=== PATIENT | female | born 1955 | race Caucasian/White ===

== ENCOUNTER 2016-10-12 13:01 | Emergency (ER) | payer OTHER ==
--- NOTE | 2016-10-12 13:22 | EDPHY ---
H & P Stated Complaint: pt dx bronchitis/is on tamiflu saw pcp last week increasing cough/sob Time Seen by Provider: 10/12/16 13:21 HPI/ROS: CHIEF COMPLAINT: Asthmatic bronchitis, worsening dyspnea HISTORY OF PRESENT ILLNESS: The patient has a history of asthmatic bronchitis and presents to the ED today with a history of worsening dyspnea. The patient reportedly developed an exacerbation of her symptoms after running out of her inhaled steroid. She restarted the steroid several days ago. The patient's has been sick with influenza and she was recently started on Tamiflu for prophylaxis. The patient has had no fever or flu-like illness personally. The patient has had a fairly severe cough over the past several days. The patient complains of generalized moderate dyspnea. She denies pleuritic chest pain. She denies asymmetric calf pain or swelling. REVIEW OF SYSTEMS: A comprehensive 10 point review of systems is otherwise negative aside from elements mentioned in the history of present illness. Source: Patient - Personal History Current Tetanus/Diphtheria Vaccine: Yes Tetanus Vaccine Date: <10yrs - Medical/Surgical History Hx Asthma: No Hx Chronic Respiratory Disease: No Hx Diabetes: No Hx Cardiac Disease: Yes Hx Renal Disease: No Hx Cirrhosis: No Hx Alcoholism: No Hx HIV/AIDS: No Hx Splenectomy or Spleen Trauma: No Other PMH: hip (bilat), appy, choly, hand surg, hysterectomy, HTN - Social History Smoking Status: Never smoked - Physical Exam Exam: General Appearance: Alert, no distress Eyes: Pupils equal and round no pallor or injection ENT, Mouth: Mucous membranes moist Respiratory: Decreased breath sounds bilaterally, scant expiratory wheezing Cardiovascular: Regular rate and rhythm Gastrointestinal: Abdomen is soft and nontender, no masses, bowel sounds normal Neurological: A&O, normal motor function, normal sensory exam, normal cranial nerves Skin: Warm and dry, no rashes Musculoskeletal: Neck is supple nontender Extremities: No asymmetric calf pain or swelling Constitutional: Initial Vital Signs Temperature (C) 36.7 C 10/12/16 13:09 Heart Rate 93 10/12/16 13:09 Respiratory Rate 18 10/12/16 13:09 Blood Pressure 121/87 H 10/12/16 13:09 O2 Sat (%) 97 10/12/16 13:09 Allergies/Adverse Reactions: prochlorperazine edisylate [From Compazine] Allergy (Unknown, Verified 10/12/16 13:05) prochlorperazine maleate [From Compazine] Allergy (Unknown, Verified 10/12/16 13 :05) tetracycline [Tetracycline] Allergy (Unknown, Verified 10/12/16 13:05) venom-honey bee [bee venom (honey bee)] Allergy (Unknown, Verified 10/12/16 13: 05) Home Medications: Medication Instructions Recorded Aspirin [Aspirin 81mg] 81 mg PO DAILY 05/06/11 Hydrochlorothiazide [HCTZ (*)] 50 mg PO DAILY 05/06/11 Ibandronate Sodium [Boniva] 150 mg PO .MONTHLY 05/06/11 Omeprazole/Sodium Bicarbonate 40 each PO DAILY 05/06/11 [Zegerid Otc 20-1,100 Mg Cap] POTASSIUM CHLORIDE [K-Kari] 20 meq PO DAILY 05/06/11 Rosuvastatin Calcium [Crestor] 20 mg PO HS 05/06/11 Temazepam 30 mg PO HS 05/06/11 Amitriptyline HCl [Elavil 10 mg 10 mg PO HS 06/21/13 (RX)] Cholecalciferol Vit D3 [Vitamin D3 1,000 units PO DAILY 06/21/13 1000 units (OTC)] DULoxetine [Cymbalta 30 MG (RX)] 30 mg PO DAILY 06/21/13 Isosorbide Mononitrate [Imdur 30 30 mg PO DAILY 06/21/13 mg (RX)] Tramadol HCl [Tramadol HCl ER] 100 mg PO TID 06/21/13 Nitroglycerin [Nitrostat 0.4 mg 0.4 mg SL PRN PRN 06/28/13 (RX)] Hydrocodone/APAP 5/325 [[place] 1 - 2 tab PO Q4 PRN 07/31/13 5/325 (RX)] Solifenacin Succinate [Vesicare 5 5 mg PO HS 07/31/13 MG (RX)] Dicyclomine [Bentyl] 20 mg PO QID PRN #20 tab 01/26/15 Dulera 100 Mcg/5 Mcg Inhaler 10/12/16 Tamiflu 10/12/16 predniSONE [prednisone 20mg (RX)] 3 tab PO DAILY #15 tab 10/12/16 Medical Decision Making - Diagnostics Imaging: Chest x-ray PA lateral: Images reviewed by myself, negative for focal infiltrate. ED Course/Re-evaluation: The patient presents to the ED with an acute exacerbation of asthma worsened by recent bronchitis. The patient has no evidence of an acute pneumonia on her chest x-ray. She is well-appearing and hemodynamically stable. In the ED the patient received a DuoNeb. She received 60 mg of prednisone. She is currently on Tamiflu for influenza prophylaxis. Patient will be provided a short 5 day course of prednisone. She should continue to use her albuterol inhaler up to every 2 hours as needed. I have instructed the patient to return to the ED for severe dyspnea, chest pain, fever or other concerns. Patient was re-evaluated at 2:30 p.m.: She is in no acute distress. She is feeling better after a DuoNeb. She was given oral prednisone in the ED. Patient will be discharged to home with customary return precautions. Differential Diagnosis: Differential diagnosis considered includes asthma, bronchitis, pneumonia - Data Points Medications Given: Discontinued Medications Albuterol/Ipratropium (Duoneb) 3 ml IH EDNOW ONE Stop: 10/12/16 13:36 Last Admin: 10/12/16 13:49 Dose: 3 ml Prednisone (Prednisone) 60 mg PO EDNOW ONE Stop: 10/12/16 13:36 Last Admin: 10/12/16 13:49 Dose: Not Given Prednisone (Prednisone) 60 mg PO EDNOW ONE Stop: 10/12/16 13:48 Last Admin: 10/12/16 14:05 Dose: 60 mg Departure - Departure Disposition: Home, Routine, Self-Care Clinical Impression: Acute bronchitis, Exacerbation of asthma Condition: Good Instructions: Acute Bronchitis (ED) Additional Instructions: 1. Please take prednisone as directed for next 5 days. 2. Use albuterol inhaler up to every 2 hours as needed. 3. Please return to the ED for markedly worsening symptoms or other concerns. Referrals: Betty Hall MD [Primary Care Provider] - As per Instructions Prescriptions: predniSONE [prednisone 20mg (RX)] 3 tab PO DAILY #15 tab
[2016-10-12] MEDS ORDERED: predniSONE 20 MG TAB PO ONE ×2 (13:35→13:47)
[2016-10-12] MEDS ORDERED: IPRATROPIUM/ALBUTEROL 3 ML DEYVIAL IH ONE ×2 (13:35→14:22)
--- NOTE | 2016-10-12 13:47 | DX ---
Chest, PA and Lateral History: Dyspnea Findings: There is perihilar bronchial wall thickening without focal infiltrate or consolidation. Fredis g volumes are low normal. There is no focal infiltrate or consolidation. Heart size and pulmonary vas cularity are normal. There is no adenopathy or mass lesion. There is no pleural effusion or pneumotho rax. Bones are unremarkable for age. There is atherosclerotic calcification of the abdominal aorta. Impression: Possible airways disease, without pneumonia.
[2016-10-12 15:01] VITALS: BP 127/86; PULSE 97; RESP 20; TEMP 98.6; O2SAT 90
== END 2016-10-12 15:00 | disposition home or self-care (01) ==
DX: J20.9 Acute bronchitis, unspecified (principal); J45.901 Unspecified asthma with (acute) exacerbation; I10 Essential (primary) hypertension; Z79.82 Long term (current) use of aspirin

== ENCOUNTER → 2017-01-10 | Outpatient (CLI) | payer OTHER | LOC: FIMAGING 14:29 | DX: Z12.31 Encounter for screening mammogram for malignant neoplasm of breast (principal); Z80.3 Family history of malignant neoplasm of breast | CPT/HCPCS: G0202 ==

== ENCOUNTER → 2017-01-30 | Outpatient (CLI) | payer OTHER ==
[~2017-01-30] MED LIST: IOPAMIDOL (ISOVUE-300) 100 ML BTL ONE
== END ==
LOC: FIMAGING 08:52
PROVIDERS: ATTEND Physician Assistant
DX: R10.33 Periumbilical pain (principal); K57.30 Diverticulosis of large intestine without perforation or abscess without bleeding; K44.9 Diaphragmatic hernia without obstruction or gangrene
CPT/HCPCS: Q9967

== ENCOUNTER 2017-10-24 14:45 | Emergency (ER) | payer OTHER ==
[2017-10-24 14:50] VITALS: TEMP 98.1
--- NOTE | 2017-10-24 15:00 | CPEKG ---
Heart Rate: 95 RR Interval: 632 P-R Interval: 160 QRSD Interval: 88 QT Interval: 364 QTC Interval: 458 P [place]: 66 QRS [place]: 63 T Wave [place]: 18 EKG Severity - BORDERLINE ECG - EKG Impression: SINUS RHYTHM EKG Impression: PROBABLE LEFT ATRIAL ABNORMALITY Electronically Signed By: Stephanie Mendoza 24-Oct-2017 23:14:40
--- NOTE | 2017-10-24 15:15 | EDPHY ---
H & P Time Seen by Provider: 10/24/17 14:56 HPI/ROS: CHIEF COMPLAINT: Palpitations, anxiety HISTORY OF PRESENT ILLNESS: The patient is a 62-year-old female with a history of hypertension and fibromyalgia who presents emergency department after having an episode of palpitations. Patient states her is currently in the hospital in she is under fair amount of stress. They are planning on discharging the patient's today. 30 min ago the patient felt sudden onset of palpitations. This was a fluttering under her chest. She had no significant discomfort. Mild shortness of breath was associated with the palpitations. No recent cough or fever. Patient's symptoms have resolved. She has no chest pain, nausea or vomiting at this time. No abdominal pain. Patient denies any focal weakness or numbness. REVIEW OF SYSTEMS: My complete review of systems is negative except as mentioned in the HPI. Past Medical/Surgical History: Includes fibromyalgia, hypertension, a Prinzmetal's angina, osteoarthritis Past surgical history: Includes hip surgery, appendectomy, cholecystectomy, hand surgery Social history: The patient is . Her is currently in the hospital. She does not smoke or drink alcohol. Family history: The patient's brother had an acute FL and coronary artery disease. He is 65 years old. The patient's father of an acute FL. Smoking Status: Never smoked Physical Exam: Vitals noted GENERAL: Well-appearing, in no acute distress, alert. HEENT: Eyes normal to inspection, normal pharynx, no signs of dehydration. NECK: No thyromegaly, no lymphadenopathy, supple. RESPIRATORY: Clear to auscultation bilaterally, no rales, rhonchi or wheezing. CVS: Regular rate and rhythm, no rubs, murmurs, or gallops. ABDOMEN: Soft, nontender, nondistended, no organomegaly. BACK: Normal to inspection, no CVA tenderness. SKIN: Normal color, no rash, warm, dry. No pallor. EXTREMITIES: No pedal edema, no calf tenderness, no Homans sign or cords, no joint swelling. NEURO/PSYCH: Alert and oriented x3, normal mood and affect, normal motor sensory exam. No obvious cranial nerve deficit. Constitutional: Initial Vital Signs Temperature (C) 36.7 C 10/24/17 14:47 Heart Rate 99 10/24/17 14:47 Respiratory Rate 18 10/24/17 14:47 Blood Pressure 137/112 H 10/24/17 14:47 O2 Sat (%) 99 10/24/17 14:47 O2 Delivery Mode Room Air Allergies/Adverse Reactions: prochlorperazine edisylate [From Compazine] Allergy (Severe, Verified 10/24/17 14:47) Other-Enter Comments prochlorperazine maleate [From Compazine] Allergy (Unknown, Verified 10/24/17 14 :47) tetracycline [Tetracycline] Allergy (Unknown, Verified 10/24/17 14:47) venom-honey bee [bee venom (honey bee)] Allergy (Unknown, Verified 10/24/17 14: 47) acetaminophen Allergy (Verified 10/24/17 14:47) Itching codeine Allergy (Verified 10/24/17 14:47) Itching oxybutynin Allergy (Uncoded 10/24/17 14:47) Home Medications: Medication Instructions Recorded Aspirin [Aspirin 81mg] 81 mg PO DAILY 05/06/11 Hydrochlorothiazide [HCTZ (*)] 50 mg PO DAILY 05/06/11 Ibandronate Sodium [Boniva] 150 mg PO .MONTHLY 05/06/11 Omeprazole/Sodium Bicarbonate 40 each PO DAILY 05/06/11 [Zegerid Otc 20-1,100 Mg Cap] POTASSIUM CHLORIDE [K-Kari] 20 meq PO DAILY 05/06/11 Rosuvastatin Calcium [Crestor] 20 mg PO HS 05/06/11 Temazepam 30 mg PO HS 05/06/11 Amitriptyline HCl [Elavil 10 mg 10 mg PO HS 06/21/13 (RX)] Cholecalciferol Vit D3 [Vitamin D3 1,000 units PO DAILY 06/21/13 1000 units (OTC)] DULoxetine [Cymbalta 30 MG (RX)] 30 mg PO DAILY 06/21/13 Isosorbide Mononitrate [Imdur 30 30 mg PO DAILY 06/21/13 mg (RX)] traMADol HCL [Tramadol HCl ER] 100 mg PO TID 06/21/13 Nitroglycerin [Nitrostat 0.4 mg 0.4 mg SL PRN PRN 06/28/13 (RX)] Hydrocodone/APAP 5/325 [[place] 1 - 2 tab PO Q4 PRN 07/31/13 5/325 (RX)] Solifenacin Succinate [Vesicare 5 5 mg PO HS 07/31/13 MG (RX)] Dicyclomine [Bentyl] 20 mg PO QID PRN #20 tab 01/26/15 Codeine Phosphate/Guaifenesin 10 ml PO HS PRN #120 ml 10/12/16 [Guaifenesin-Codeine Syrup] Dulera 100 Mcg/5 Mcg Inhaler 10/12/16 Tamiflu 10/12/16 predniSONE [prednisone 20mg (RX)] 3 tab PO DAILY #15 tab 10/12/16 Medical Decision Making - Diagnostics EKG Interpretation: EKG shows normal sinus rhythm, normal rate, normal axis, normal intervals. There are no ST or T-wave abnormalities. EKG is normal as interpreted by me. Imaging Results: Imaging Impressions Chest X-Ray 10/24/17 15:19 Impression: Stable or recurrent mild airways disease. No pneumonia, cardiomegaly or evidence for cardiac decompensation. ED Course/Re-evaluation: In the emergency department I discussed possible etiologies with the patient and answered all of her questions. An IV was placed. Laboratory studies, EKG and chest x-ray were ordered. Patient was given aspirin orally. She did not want any medicine for anxiety. Patient had low risk Wells criteria. Her PERC rule positive for age. Troponin was negative. Laboratory studies unremarkable. I discussed case with Dr. Jerry from Cardiology. He came the emergency department to evaluate the patient. He agrees with the plan to obtain a 3 hr troponin and EKG. If those are negative patient will be discharged home. Cardiology will see the patient in follow-up. Repeat EKG 1749: EKG shows normal sinus rhythm, normal rate, normal axis, normal intervals. There are no ST or T-wave abnormalities. EKG is normal as interpreted by me. No change. Repeat troponin negative. Discussed the results with the patient. I answered all her questions. She is given warnings prior to leaving. At time of discharge she had no palpitations or chest pain. Differential Diagnosis: My differential includes but is not limited to ACS, acute FL, dysrhythmia, palpitations, PE, anxiety, electrolyte abnormality, sugar abnormality - Data Points Laboratory Results: Laboratory Results 10/24/17 15:00 10/24/17 15:00 10/24/17 10/24/17 10/24/17 17:48 15:00 15:00 WBC 5.90 10^3/uL 10^3/uL (3.80-9.50) RBC 4.21 10^6/uL 10^6/uL (4.18-5.33) Hgb 13.6 g/dL g/dL (12.6-16.3) Hct 38.6 % % (38.0-47.0) MCV 91.7 fL fL (81.5-99.8) MCH 32.3 pg pg (27.9-34.1) MCHC 35.2 g/dL g/dL (32.4-36.7) RDW 11.8 % % (11.5-15.2) Plt Count 250 10^3/uL 10^3/uL (150-400) MPV 9.2 fL fL (8.7-11.7) Neut % (Auto) 66.1 % % (39.3-74.2) Lymph % (Auto) 25.1 % % (15.0-45.0) [place] % (Auto) 6.9 % % (4.5-13.0) Eos % (Auto) 1.0 % % (0.6-7.6) Baso % (Auto) 0.2 % L % (0.3-1.7) Nucleat RBC Rel Count 0.0 % % (0.0-0.2) Absolute Neuts (auto) 3.90 10^3/uL 10^3/uL (1.70-6.50) Absolute Lymphs (auto) 1.48 10^3/uL 10^3/uL (1.00-3.00) Absolute Monos (auto) 0.41 10^3/uL 10^3/uL (0.30-0.80) Absolute Eos (auto) 0.06 10^3/uL 10^3/uL (0.03-0.40) Absolute Basos (auto) 0.01 10^3/uL L 10^3/uL (0.02-0.10) Absolute Nucleated RBC 0.00 10^3/uL 10^3/uL (0-0.01) Immature Gran % 0.7 % % (0.0-1.1) Immature Gran # 0.04 10^3/uL 10^3/uL (0.00-0.10) D-Dimer < 0.27 ug/mLFEU ug/mLFEU (0.00-0.50) Sodium Potassium Chloride Carbon Dioxide Anion Gap BUN Creatinine Estimated GFR Glucose Calcium Troponin I < 0.012 ng/mL ng/mL (0.000-0.034) Beta HCG, Qual 10/24/17 10/24/17 15:00 15:00 WBC RBC Hgb Hct MCV MCH MCHC RDW Plt Count MPV Neut % (Auto) Lymph % (Auto) [place] % (Auto) Eos % (Auto) Baso % (Auto) Nucleat RBC Rel Count Absolute Neuts (auto) Absolute Lymphs (auto) Absolute Monos (auto) Absolute Eos (auto) Absolute Basos (auto) Absolute Nucleated RBC Immature Gran % Immature Gran # D-Dimer Sodium 139 mEq/L mEq/L (135-145) Potassium 3.2 mEq/L L mEq/L (3.5-5.2) Chloride 106 mEq/L mEq/L (97-110) Carbon Dioxide 19 mEq/l L mEq/l (22-31) Anion Gap 14 mEq/L mEq/L (8-16) BUN 15 mg/dL mg/dL (7-23) Creatinine 1.0 mg/dL mg/dL (0.6-1.0) Estimated GFR 56 Glucose 138 mg/dL H mg/dL (70-100) Calcium 9.6 mg/dL mg/dL (8.5-10.4) Troponin I < 0.012 ng/mL ng/mL (0.000-0.034) Beta HCG, Qual NEGATIVE Medications Given: Discontinued Medications Aspirin (Aspirin) 324 mg PO EDNOW ONE Stop: 10/24/17 15:20 Last Admin: 10/24/17 15:25 Dose: 324 mg Potassium Chloride (Potassium Chloride Oral Liquid) 60 meq PO EDNOW ONE Stop: 10/24/17 16:15 Last Admin: 10/24/17 16:26 Dose: 60 meq Departure - Departure Disposition: Home, Routine, Self-Care Clinical Impression: Palpitations Condition: Fair Instructions: Heart Palpitations (ED) Additional Instructions: Return with increasing chest pain, shortness of breath or any other concerns. You need close follow-up with Cardiology. Referrals: Betty Hall MD [Primary Care Provider] - 2-3 days, call for appt. Akhil Honeycutt MD [Medical Doctor] - 2-3 days, call for appt.
[2017-10-24] MEDS ORDERED: ASPIRIN 81 MG CHEWABLE TAB PO ONE (15:19)
[2017-10-24 15:42] LABS: PLATELET COUNT 250 10^3/uL (150-400)
[2017-10-24] MEDS ORDERED: POTASSIUM CL 20 MEQ/15 ML UDCUP PO ONE (16:14)
--- NOTE | 2017-10-24 17:51 | CPEKG ---
Heart Rate: 76 RR Interval: 789 P-R Interval: 160 QRSD Interval: 86 QT Interval: 384 QTC Interval: 432 P [place]: 49 QRS [place]: 28 T Wave [place]: 12 EKG Severity - NORMAL ECG - EKG Impression: SINUS RHYTHM Electronically Signed By: Stephanie Mendoza 24-Oct-2017 23:14:40
[2017-10-24 18:44] VITALS: BP 120/64; PULSE 81; RESP 16; O2SAT 95
== END 2017-10-24 18:44 | disposition home or self-care (01) ==
DX: R00.2 Palpitations (principal); I10 Essential (primary) hypertension; Z79.82 Long term (current) use of aspirin

== ENCOUNTER → 2018-01-12 | Outpatient (CLI) | payer OTHER | LOC: FIMAGING 11:05 | PROVIDERS: ATTEND Internal Medicine | DX: Z12.31 Encounter for screening mammogram for malignant neoplasm of breast (principal) ==

== ENCOUNTER → 2019-03-01 | Outpatient (CLI) | payer OTHER | LOC: FIMAGING 11:59 ==